=== PATIENT | male | born 1985 | race Caucasian/White ===

== ENCOUNTER 2020-09-26 00:56 | Emergency (ER) | payer OTHER ==
[~2020-09-26] VITALS: Ht 182.9 cm; Wt 88.5 kg
[~2020-09-26 00:56] MED LIST: BACTRIM DS TAB1 EACH PO; ERYTHROMYCIN E3.5 G1 OP; IBUPROFEN 800800 M1 PO; NORCO 5-325 TA1 EACH PO; PENICILLIN VK500 MG PO; PERCOCET 5-3251 EACH PO
[2020-09-26 02:32] LABS: URINE BLOOD 3+ (Negative); URINE CLARITY CLOUDY; URINE COLOR BROWN; URINE GLUCOSE-RANDOM NEGATIVE (Negative); URINE KETONES TRACE (Negative); URINE LEUKOCYTES-REFLEX NEGATIVE (Negative); URINE NITRITE-REFLEX NEGATIVE (Negative); URINE PROTEIN 3+ (Negative); URINE SPECIFIC GRAVITY >= 1.030 (1.005-1.030)
[2020-09-26 02:33] LABS: URINE BILIRUBIN 1+ (Negative)
[2020-09-26 02:35] LABS: ICTOTEST (BILI CONFIRMATORY) Negative (Negative)
[2020-09-26 02:37] LABS: ABSOLUTE EOSINOPHILS 0.1 thou/uL (0.0-0.7); ABSOLUTE LYMPHOCYTES 1.6 thou/uL (0.8-5.3); ABSOLUTE MONOCYTES 0.5 thou/uL (0.0-1.2); ABSOLUTE NEUTROPHILS 12.1 thou/uL (1.6-8.1); BASOPHILS 0.2 %; EOSINOPHILS 0.4 %; HEMATOCRIT 46.5 % (42.0-52.0); HEMOGLOBIN 16.6 gm/dL (14.0-18.0); LYMPHOCYTES 11.2 %; MCH 31.9 pg (26.0-34.0); MCHC 35.7 g/dL (28.0-37.0); MCV 89.4 fL (80.0-100.0); MONOCYTES 3.8 %; MPV 7.9 fl. (7.2-11.1); NUCLEATED RBCS 0 /100WBC; PLATELET COUNT* 229 thou/uL (150-400); POLYS 84.4 %; RDW-CV 13.1 % (10.5-14.5); WBC 14.3 thou/uL (4.0-11.0)
[2020-09-26 02:39] LABS: CALCIUM 9.1 mg/dL (8.5-10.1); CREATININE 0.9 mg/dL (0.6-1.3); POTASSIUM 4.2 mmol/L (3.5-5.1)
[2020-09-26 02:56] LABS: CASTS None Seen /LPF (None Seen); SQUAMOUS NONE SEEN /LPF (0-3)
[2020-09-26 02:57] LABS: URINE RBC >20 Many /HPF (0-2)
[2020-09-26 02:59] LABS: CRYSTALS None Seen /LPF (None Seen)
[2020-09-26] MEDS ORDERED: HYDROCODON-ACE1 EAC8 PO (03:05)
[2020-09-26] MEDS ORDERED: ZOFRAN ODT4 MG PO (03:05)
[2020-09-26] MEDS ORDERED: FLOMAX0.4 MG PO (03:05)
[2020-09-26 03:26] VITALS: BP 122/76
== END 2020-09-26 03:26 | disposition home or self-care (01) ==
LOC: M.ERS 00:56
PROVIDERS: Emergency Medicine
DX: N20.0 Calculus of kidney (principal); F17.210 Nicotine dependence, cigarettes, uncomplicated; Z87.442 Personal history of urinary calculi